=== PATIENT | female | born 1980 | race Caucasian/White ===

== ENCOUNTER 2016-09-20 18:01 | Emergency (ER) | payer MEDICAID ==
[~2016-09-20] VITALS: Ht 167.6 cm; Wt 90.5 kg
[~2016-09-20 18:01] MED LIST: HYDR-3498 PO; NITR-58 PO; ONDA4TAB8 PO; TRAM50TA2 PO
[2016-09-20 18:09] VITALS: Ht 167.6 cm; Wt 90.5 kg
--- NOTE | 2016-09-20 19:43 | ERD ---
ER Documentation Chief Complaint Date/Time DATE: 09/20/16 TIME: 19:42 Chief Complaint 9/10 back and left arm pain x 2 weeks HPI 35-year-old female present here in emergency department for complaints of left upper back pain radiating to the left arm area for 2 weeks now. Patient discussed the pain as sharp pain, 6/10 scale, not better or worse with anything. Patient denies any trauma and affected area. Patient denies any fever or chills. Patient denies any cough. Patient denies any dizziness. Patient denies any numbness or tingling. ROS All systems reviewed and are negative except as per history of present illness. Medications Home Meds Active Scripts Nitrofurantoin Monohyd Macrocr* (Macrobid*) 100 Mg Capsr, 100 MG PO BID for 7 Days, CAP Prov:LETICIA TALAMANTES PA-C 11/08/15 Tramadol HCl (Tramadol HCl) 50 Mg Tablet, 50 MG PO Q4 Y for PAIN, #20 TAB Prov:LETICIA TALAMANTES PA-C 11/08/15 Ondansetron Hcl* (Zofran*) 4 Mg Tablet, 4 MG PO Q8 for NAUSEA AND/OR VOMITING, # 30 TAB Prov:CYNDI MAYO CHILD SUPPORT OFFICER 07/16/14 Hydrocodone Bit-Acetaminophen* ([place]*) 5-325 Mg Tab, 1 TAB PO Q6 Y for SEVERE PAIN LEVEL 7-10, #20 TAB Prov:CYNDI MAYO CHILD SUPPORT OFFICER 07/16/14 Allergies Allergies: Coded Allergies: No Known Drug Allergy (Verified Allergy, Unknown, 07/16/14) PMhx/Soc History of Surgery: Yes (tubal ligation ) Anesthesia Reaction: No Hx Neurological Disorder: No Hx Respiratory Disorders: No Hx Cardiac Disorders: No Hx Psychiatric Problems: No Hx Miscellaneous Medical Probl: Yes (HERNIA ) Hx Alcohol Use: No Hx Substance Use: No Hx Tobacco Use: No Smoking Status: Never smoker FmHx Family History: No coronary disease, No diabetes, No other Physical Exam Vitals Vital Signs Date Time Temp Pulse Resp B/P Pulse Ox O2 Delivery O2 Flow Rate FiO2 09/20/16 18:09 99.1 80 16 110/62 98 Physical Exam GENERAL: The patient is well developed and appropriate for usual state of health, in no apparent distress. CHEST: Clear to auscultation bilaterally. There are no rales, wheezes or rhonchi. HEART: Regular rate and rhythm. No murmurs, clicks, rubs or gallops. No S3 or S4. ABDOMEN: Soft, nontender and nondistended. Good bowel sounds. No rebound or guarding. No gross peritonitis. No gross organomegaly or masses. No Wood sign or McBurney point tenderness. BACK: No midline or flank tenderness. Muscle spasms noted in the left paraspinal aspect of the thoracic spine. EXTREMITIES: Equal pulses bilaterally. There is no peripheral clubbing, cyanosis or edema. No focal swelling or erythema. Full range of motion. Grossly neurovascularly intact. NEURO: Alert and oriented. Cranial nerves 2-12 intact. Motor strength in all 4 extremities with 5/5 strength. Sensation grossly intact. Normal speech and gait. SKIN: There is no apparent rash or petechia. The skin is warm and dry. HEMATOLOGIC AND LYMPHATIC: There is no evidence of excessive bruising or lymphedema. No gross cervical, axillary, or inguinal lymphadenopathy. Results 24 hrs PROCEDURE: XR Chest. CLINICAL INDICATION: left upper back midaxillary pain TECHNIQUE: Single frontal view of the chest was obtained COMPARISON: None FINDINGS: The heart and mediastinum are within normal limits. The lungs are clear. There is no pleural effusion or pneumothorax. The bones and soft tissue show no acute change. IMPRESSION: No definite abnormalities are identified. RPTAT:AAJJ Physician Noble Date Time Electronically viewed and signed by Physician Noble on 09/20/2016 20: 06 MC/ CC: CYNDI MAYO NP PROCEDURE: CT thoracic spine without contrast CLINICAL INDICATION: Back pain. TECHNIQUE: CT scan of the thoracic spine was performed on a multidetector high -resolution CT scanner. No IV contrast was administered. DOSE: CTDI = 24mGy and the DLP = 897mGy-cm. COMPARISON: None available FINDINGS: No acute thoracic vertebral fracture or subluxation is identified. Multilevel thoracic disk space narrowing and discogenic degenerative endplate changes T6-7 through L1-2. 3 mm central disk osteophyte complex T6-7 narrows the ventral thecal sac with mild spinal canal narrowing. Otherwise, the remaining thoracic levels show no bony spinal canal or bony foraminal narrowing. Paraspinous soft tissues are grossly unremarkable. Visualized portions of the lung and upper abdomen are unremarkable. IMPRESSION: No acute thoracic vertebral compression fracture. Multilevel thoracic discogenic disease T6-7 through L1-2. 3 mm central disk osteophyte complex T6-7 narrows the ventral thecal sac with mild spinal canal narrowing. RPTAT: AA .Jacques Weinberg MD, Date Time Electronically viewed and signed by .Jacques Weinberg MD, on 09/20/2016 20:38 .T/ CC: CYNDI MAYO CHILD SUPPORT OFFICER Procedures/MDM Medical Decision Making: Patient's pain is most likely consistent with a back strain, can be the also from degenerative disc disease, possibly neuropathic pain noted in the thoracic spine. There is no suspicion for neurovascular compromise. Patient has intact sensation and circulation of the affected extremity and distal extremities no symptoms of any acute bacterial infection. There is low suspicion for septic arthritis. Patient does not have any fever. No symptoms of any aortic dissection or aortic aneurysm. Radiology exam not indicated at this time. Disposition: Home. Patient is given prescription for ibuprofen for mild to moderate pain, [place] for severe pain, gabapentin. Patient was advised to avoid heavy lifting , apply warm compresses on affected area. Patient was advised that if symptoms are worse, numbness, tingling, high fever, unable to move joint , worsening symptoms, to return to emergency department immediately. Otherwise, patient is advised to follow up with the primary care doctor in 5-7 days for reevaluation of symptoms. Departure Diagnosis: Primary Impression: Back pain Back pain location: thoracic back pain Chronicity: acute Back pain laterality: left Qualified Code: M54.6 - Acute left-sided thoracic back pain Additional Impression: Degenerative disc disease, thoracic Condition: Stable Patient Instructions: Back Pain (Acute Or Chronic), Degenerative Disk Disease Additional Instructions: Patient is given prescription for ibuprofen for mild to moderate pain, [place] for severe pain, gabapentin. Patient was advised to avoid heavy lifting , apply warm compresses on affected area. Patient was advised that if symptoms are worse , numbness, tingling, high fever, unable to move joint, worsening symptoms, to return to emergency department immediately. Otherwise, patient is advised to follow up with the primary care doctor in 5-7 days for reevaluation of symptoms. CYNDI MAYO. YADIRA Sep 20, 2016 19:43
--- NOTE | 2016-09-20 20:06 | RADRPT ---
PROCEDURE: XR Chest. CLINICAL INDICATION: left upper back midaxillary pain TECHNIQUE: Single frontal view of the chest was obtained COMPARISON: None FINDINGS: The heart and mediastinum are within normal limits. The lungs are clear. There is no pleural effusion or pneumothorax. The bones and soft tissue show no acute change. IMPRESSION: No definite abnormalities are identified. RPTAT:AAJJ Physician Noble Date Time Electronically viewed and signed by Danial Mueller Physician on 09/20/2016 20:06 /
--- NOTE | 2016-09-20 20:39 | RADRPT ---
PROCEDURE: CT thoracic spine without contrast CLINICAL INDICATION: Back pain. TECHNIQUE: CT scan of the thoracic spine [facility] No IV contrast was administered. DOSE: CTDI = 24mGy and the DLP = 897mGy-cm. COMPARISON: None available FINDINGS: No acute thoracic vertebral fracture or subluxation is identified. Multilevel thoracic disk space narrowing and discogenic degenerative endplate changes T6-7 through L 1-2. 3 mm central disk osteophyte complex T6-7 narrows the ventral thecal sac with mild spinal canal narr owing. Otherwise, the remaining thoracic levels show no bony spinal canal or bony foraminal narrowing. Paraspinous soft tissues are grossly unremarkable. Visualized portions of the lung and upper abdomen are unremarkable. IMPRESSION: No acute thoracic vertebral compression fracture. Multilevel thoracic discogenic disease T6-7 through L1-2. 3 mm central disk osteophyte complex T6-7 narrows the ventral thecal sac with mild spinal canal narr owing. RPTAT: AA .Jacques Weinberg MD, Date Time Electronically viewed and signed by .Jacques Weinberg MD, on 09/20/2016 20:38 .T/
[2016-09-20] MEDS ORDERED: IBUP-1542 PO (20:59)
[2016-09-20] MEDS ORDERED: HYDR-906 PO (20:59)
[2016-09-20] MEDS ORDERED: GABA300C16 PO (20:59)
== END 2016-09-21 01:40 | disposition home or self-care (01) ==
LOC: FTE 18:01
DX: M51.34 Other intervertebral disc degeneration, thoracic region (principal)
CPT/HCPCS: 71010; 72128; Z7502